=== PATIENT | female | born 1995 | race Caucasian/White ===

== ENCOUNTER 2018-04-25 16:43 | Emergency (ER) | payer OTHER ==
[2018-04-25 16:57] VITALS: TEMP 98.3
--- NOTE | 2018-04-25 18:29 | ED ---
General Adult HPI - General Chief complaint: Urogenital Stated complaint: ENT, Urinary Time Seen by Provider: 04/25/18 17:02 Source: patient Mode of arrival: ambulatory Limitations: no limitations - History of Present Illness Initial comments: 22-year-old female presenting today for multiple complaints. Patient states that while had brought her to the emergency department was congestion, sinus pressure, "and sinus headache". Patient states she has had multiple sinus infections in the past and this feels identical, she denies this being the worst headache of her life or sudden onset. Patient denies any visual changes, nausea, vomiting, diplopia or dizziness. Patient denies any history of head trauma. Patient states the pain in her face increases with downward head movement. She states she has pressure in her ears bilaterally, stating they often pop. Patient also mentioned that she has had for the past 1-2 weeks bilateral "ovary" pain. Patient states that pain at its worst is 10 out of 10 and comes and goes. Patient denies any upper abdominal pain, vaginal bleeding. Patient states she has history of ovarian cysts and the characterisitic is similar however the pain usually doesnt last that long, patient is on DEPO and states she has not had a period since the start of DEPO about 4 years ago. Pt states she was recently evaluated at a [facility] clinic where evaluation and STD testing was normal. Patient also stated today that she has dysuria, urgency and frequency, she states he has frequent urinary tract infections and this feels identical to when she has had them in the past. Patient denies hematuria flank or back pain denies fever or chills or night sweats. Remaining ROS (-), Patient denies any recent cough, sore throat, shortness of breath, chest pain, back pain, nausea or vomiting, numbness or tingling, constipation or diarrhea, or any other complaints. Patient appears well, no clinical signs of distress, no protecting posturing. Patient is smiling and appearing well. - Related Data Home Medications Medication Instructions Recorded Confirmed ALPRAZolam [Xanax] 0.5 mg PO BID PRN 12/16/17 04/25/18 Albuterol Inhaler [Ventolin Hfa 1 - 2 puff INHALATION RT-Q6H PRN 12/16/17 04/25/18 Inhaler] Cetirizine HCl [Zyrtec] 10 mg PO DAILY 12/16/17 04/25/18 FLUoxetine HCL [PROzac] 20 mg PO BID 12/16/17 04/25/18 Fluticasone Propionate [Flovent 2 puff INHALATION RT-BID 12/16/17 04/25/18 Hfa 110mcg] Previous Rx's Medication Instructions Recorded Sulfamethox-Tmp 800-160Mg [Bactrim 1 tab PO Q12HR 3 Days #6 tab 04/25/18 DS 800-160 mg] Allergies Allergy/AdvReac Type Severity Reaction Status Date / Time amoxicillin Allergy Anaphylaxis Verified 04/25/18 18:56 Penicillins Allergy Anaphylaxis Verified 04/25/18 18:56 Review of Systems ROS Statement: Those systems with pertinent positive or pertinent negative responses have been documented in the HPI. ROS Other: All systems not noted in ROS Statement are negative. Past Medical History Past Medical History: Asthma History of Any Multi-Drug Resistant Organisms: None Reported Past Surgical History: No Surgical Hx Reported Past Psychological History: Anxiety, Depression Smoking Status: Never smoker Past Alcohol Use History: None Reported Past Drug Use History: None Reported General Exam - General Exam Comments Initial Comments: General: The patient is awake and alert, in no distress, and does not appear acutely ill. Eye: +3 mm pupils are equal, round and reactive to light, extra-ocular movements are intact. No nystagmus. There is normal conjunctiva bilaterally. No signs of icterus. No photophobia Ears, nose, mouth and throat: There are moist mucous membranes and no oral lesions. Oropharynx was not erythematous there is no tonsillar enlargement exudates or lesions. Uvula midline. Tympanic membranes are not erythematous or is no effusions bulging or retraction. No tenderness to palpation of the mastoid. No anterior cervical lymphadenopathy. Rhinorrhea, clear and bilateral nares. No tripoding, no drooling. Neck: The neck is supple, there is no tenderness or JVD. No nuchal rigidity negative Brudzinski and Kernig Cardiovascular: There is a regular rate and rhythm. No murmur, rub or gallop is appreciated. Respiratory: Lungs are clear to auscultation, respirations are non-labored, breath sounds are equal. No wheezes, stridor, rales, or rhonchi. No retractions or abdominal breathing. Gastrointestinal: No noted diaphoresis, jaundice, pallor, protecting postures or squirming. Symmetrical pigmentation of abdomen without signs of inflammation, [scars], or striae. Umbilicus mildline, inverted without swelling. No dilated veins. Abdomen contour [ ], no noted abdominal distention. No visible masses. No peristalsis, aortic pulsations, or ventral hernia. Bowel sounds audible in all 4 quadrants, unremarkable. No tenderness to light or deep palpation of upper quadrants of abdomen, bilateral lower pelvic pain to deep palpation, appears mild- no rigidity, guarding, grimacing a protective postures. Liver edge, not palpable. Spleen edge, right and left kidney not palpable. Superior bladder margin non- tender. Special Testing: Negative [place], Rovsing, McBurney, Catarina, cutaneous hyperesthesia. Iliopsoas and obturator tests negative bilaterally. Negative Heel Jar test/james sign. No CVA tenderness. [Digital rectal exam deferred.] Negative paul turners or cullens sign Musculoskeletal: Normal ROM, no tenderness. Strength 5/5. Sensation intact. Radial pulses equal bilaterally 2+. Neurological: A&O x 3. CN II-XII intact, There are no obvious motor or sensory deficits. Coordination appears grossly intact. Speech appears normal, no muffling. Skin: Skin is warm and dry and no rashes or lesions are noted. No extremity edema Psychiatric: Cooperative Limitations: no limitations Course Vital Signs 04/25/18 16:54 Temperature 98.3 F Pulse Rate 92 Respiratory 18 Rate Blood Pressure 108/68 O2 Sat by Pulse 96 Oximetry Medical Decision Making - Medical Decision Making UA revealed findings concerning for UTI, will tx with bactrim. Pt has sinus pain to palpation, mild of the frontal sinuses. Patient afebrile appearing well and nontoxic. Patient states she does have chronic ALLERGIES and this seems to happen when the changes in weather. Patient takes ALLERGY medications at home as well as a nasal spray. I recommended continuing these modalities for treatment of sinus pressure. No overt signs of infection at this time. US (-) for torsion, or acute process. She had what appeared to be a benign abdominal exam without rigidity or guarding. Pt did not appear in acute distress or pain throughout visit. Pt states symptoms ongoing for weeks. Patient is to f/u with womens clinic and primary care provider. Return parameters discussed with patient who verbalized understanding. Patient denied questions. Patient is agreeable plan at discharge. Case discussed with Dr. Vincent prior to patients discharge. - Lab Data Lab Results 04/25/18 04/25/18 Range/Units 18:17 18:17 Urine Color Yellow Urine Appearance Clear (Clear) Urine pH 5.5 (5.0-8.0) Ur Specific [place] 1.017 (1.001-1.035) Urine Protein Negative (Negative) Urine Glucose (UA) Negative (Negative) Urine Ketones Negative (Negative) Urine Blood Trace H (Negative) Urine Nitrite Negative (Negative) Urine Bilirubin Negative (Negative) Urine Urobilinogen <2.0 (<2.0) mg/dL Ur Leukocyte Esterase Trace H (Negative) Urine RBC 2 (0-5) /hpf Urine WBC 6 H (0-5) /hpf Ur Squamous Epith Cells 7 H (0-4) /hpf Amorphous Sediment Rare H (None) /hpf Urine Bacteria Occasional H (None) /hpf Urine Mucus Rare H (None) /hpf Urine HCG, Qual Not Detected (Not Detectd) Disposition Clinical Impression: Sinusitis, UTI (urinary tract infection), Pelvic pain Disposition: HOME SELF-CARE Condition: Good Instructions (If sedation given, give patient instructions): Urinary Tract Infection in Women (ED) Additional Instructions: Please use medication as discussed. Please follow-up with family doctor in the next 2 days. Please [facility] with [facility] as discussed. Please return to emergency room if the symptoms increase or worsen or for any other concerns. Prescriptions: Sulfamethox-Tmp 800-160Mg [Bactrim DS 800-160 mg] 1 tab PO Q12HR 3 Days #6 tab Is patient prescribed a controlled substance at d/c from ED?: No Referrals: None,Stated [Primary Care Provider] - 1-2 days [facility] - 1-2 days Time of Disposition: 18:55
[2018-04-25 18:39] LABS: Amorphous Sediment,Urine Rare /hpf; Appearance,Urine Clear (Clear); Bacteria,Urine Occasional /hpf; Bilirubin,Urine Negative (Negative); Blood,Urine Trace (Negative); Color,Urine Yellow; Glucose,Urine (UA) Negative (Negative); Ketones,Urine Negative (Negative); Leukocyte Esterase,Urine Trace (Negative); Mucus,Urine Rare /hpf; Nitrite,Urine Negative (Negative); PH, Urine 5.5 (5.0-8.0); Protein,Urine Negative (Negative); RBC,Urine 2 /hpf (0-5); Specific Gravity,Urine 1.017 (1.001-1.035); Squamous Epithelial Cell,Urine 7 /hpf (0-4); Urobilinogen,Urine <2.0 mg/dL (<2.0)
--- NOTE | 2018-04-25 18:48 | US ---
EXAMINATION TYPE: US transvaginal DATE OF EXAM: 04/25/2018 COMPARISON: NONE CLINICAL HISTORY: Pain. Pelvic cramping x couple weeks, LMP 4 years ago, patient on depo shot, gravid a 0 TECHNIQUE: Transvaginal ER exam. Date of LMP: 4 years ago EXAM MEASUREMENTS: Uterus: 5.4 x 2.4 x 3.2 cm Endometrial Stripe: 0.4 cm Right Ovary: 2.9 x 2.3 x 1.8 cm Left Ovary: 2.8 x 1.8 x 1.7 cm 1. Uterus: anteverted 2. Endometrium: wnl 3. Right Ovary: multiple follicles 4. Left Ovary: wnl Spectral, color and waveform doppler imaging shows good arterial and venous flow within the ovaries ; there is no evidence for ovarian torsion. 5. Bilateral Adnexa: wnl 6. Posterior cul-de-sac: wnl IMPRESSION: Unremarkable abdominal ultrasound. Findings are unchanged from the prior of 12/16/2017. No current evidence of ovarian torsion at the time of examination.
[2018-04-25 19:36] VITALS: BP 125/66; PULSE 73; RESP 16
== END 2018-04-25 19:35 | disposition home or self-care (01) ==
LOC: EC 16:43
DX: J32.9 Chronic sinusitis, unspecified (principal); N39.0 Urinary tract infection, site not specified; J45.909 Unspecified asthma, uncomplicated; F41.9 Anxiety disorder, unspecified; F32.9 Major depressive disorder, single episode, unspecified; Z87.42 Personal history of other diseases of the female genital tract; Z79.51 Long term (current) use of inhaled steroids; Z79.899 Other long term (current) drug therapy; Z88.0 Allergy status to penicillin
CPT/HCPCS: 76830; 81001; 81025; 87086; 93975; 99284

== ENCOUNTER 2018-05-10 12:00 | Emergency (ER) | payer OTHER ==
[2018-05-10 12:08] VITALS: RESP 18
[2018-05-10] MEDS ORDERED: SODIUM CHLORIDE 0.9% 500 ML 500 ML IV STA (12:23)
[2018-05-10 13:09] LABS: Basophils % (A) 0 %; Eosinophils # (A) 0.3 k/uL (0-0.7); Eosinophils % (A) 4 %; HCT 41.6 % (34.0-46.0); HGB 14.3 gm/dL (11.4-16.0); Lymphocytes # (A) 2.2 k/uL (1.0-4.8); Lymphocytes % (A) 36 %; MCH 29.4 pg (25.0-35.0); MCHC 34.3 g/dL (31.0-37.0); MCV 85.6 fL (80.0-100.0); Mean Platelet Volume 7.5; Monocytes # (A) 0.3 k/uL (0-1.0); Monocytes % (A) 6 %; Neutrophils # (A) 3.2 k/uL (1.3-7.7); Neutrophils % (A) 52 %; Platelet Count 327 k/uL (150-450); RBC 4.86 m/uL (3.80-5.40); RDW 12.6 % (11.5-15.5); WBC 6.2 k/uL (3.8-10.6)
[2018-05-10 13:10] LABS: Appearance,Urine Clear (Clear); Bilirubin,Urine Negative (Negative); Blood,Urine Negative (Negative); Color,Urine Light Yellow; Glucose,Urine (UA) Negative (Negative); Ketones,Urine Negative (Negative); Leukocyte Esterase,Urine Negative (Negative); Nitrite,Urine Negative (Negative); Protein,Urine Negative (Negative); Specific Gravity,Urine 1.007 (1.001-1.035); Urobilinogen,Urine <2.0 mg/dL (<2.0)
[2018-05-10 13:15] LABS: ALT 22 U/L (9-52); AST 21 U/L (14-36); Alkaline Phosphatase 88 U/L (38-126); Amylase 46 U/L (30-110); Anion Gap 8 mmol/L; Blood Urea Nitrogen 9 mg/dL (7-17); Calcium 9.8 mg/dL (8.4-10.2); Carbon Dioxide 24 mmol/L (22-30); Chloride 108 mmol/L (98-107); Glucose 89 mg/dL (74-99); Lipase 72 U/L (23-300); Potassium 4.1 mmol/L (3.5-5.1); Sodium 140 mmol/L (137-145); Total Bilirubin 0.5 mg/dL (0.2-1.3); Total Protein 7.2 g/dL (6.3-8.2)
--- NOTE | 2018-05-10 13:24 | US ---
EXAMINATION TYPE: US venous doppler duplex LE LT DATE OF EXAM: 05/10/2018 1:16 PM COMPARISON: NONE CLINICAL HISTORY: Pain. Left leg cramping x couple weeks SIDE PERFORMED: Left TECHNIQUE: The lower extremity deep venous system is examined utilizing real time linear array sonog ras with graded compression, doppler sonography and color-flow sonography. VESSELS IMAGED: External Iliac Vein (EIV) Common Femoral Vein Deep Femoral Vein Greater Saphenous Vein * Femoral Vein Popliteal Vein Small Saphenous Vein * Proximal Calf Veins (* superficial vessels) Left Leg: Appears negative for DVT IMPRESSION: 1. No diagnostic evidence of DVT as visualized.
--- NOTE | 2018-05-10 13:50 | ED ---
Abdominal Pain HPI - General Chief Complaint: Abdominal Pain Stated Complaint: abd/leg pain Time Seen by Provider: 05/10/18 12:10 Source: patient Mode of arrival: ambulatory Limitations: no limitations - History of Present Illness Initial Comments: 22-year-old female presenting for multiple complaints. Patient states she presented to an urgent care facility prior to arrival for evaluation of lower pelvic pain 6 weeks and left lower extremity swelling and cramping x2 weeks. Patient states she is experiencing a cramping for longer than 2 weeks she states she has for years experiencing the cramping. Patient noticed the past 2 weeks her left leg appeared mildly swollen. So the right. She states she did have a previous ankle fracture greater than 5 years ago and has had some swelling of the left leg on and off since the incident. Patient denies history of blood clot, recent travel, history of cancer, she denies chest pain, dysphagia, dyspep seferino exertion, hemoptysis. Patient states she has not followed up with RENAL MEDICINE PHYSICIAN or primary care as discussed prior to discharge on visit 04/25/2018. Patient states she is in the process of following up patient denies vaginal discharge, pain with sex. Patient admits to some dysuria denies urgency frequency or hematuria. Patient has had 2 negative pelvic ultrasounds in the past 6 months. Patient denies back pain. Patient denies radiation of the dental pain she states it feels as though it is lower pelvic cramping, she denies it being constant she states is sharp at times. Patient denies current pain. Remaining review of systems negative, patient denies any recent fever, chills, shortness o f breath, chest pain, nausea or vomiting, numbness or tingling, constipation or diarrhea, headaches or visual changes, or any other complaints. Upon arrival patient appears comfortable in no acute distress. Vital signs within acceptable limits. - Related Data Home Medications Medication Instructions Recorded Confirmed ALPRAZolam [Xanax] 0.5 mg PO BID PRN 12/16/17 05/10/18 Cetirizine HCl [Zyrtec] 10 mg PO DAILY 12/16/17 05/10/18 FLUoxetine HCL [PROzac] 20 mg PO BID 12/16/17 05/10/18 Allergies Allergy/AdvReac Type Severity Reaction Status Date / Time amoxicillin Allergy Anaphylaxis Verified 05/10/18 12:37 Penicillins Allergy Anaphylaxis Verified 05/10/18 12:37 Review of Systems ROS Statement: Those systems with pertinent positive or pertinent negative responses have been documented in the HPI. ROS Other: All systems not noted in ROS Statement are negative. Past Medical History Past Medical History: Asthma History of Any Multi-Drug Resistant Organisms: None Reported Past Surgical History: No Surgical Hx Reported Past Psychological History: Anxiety, Depression Smoking Status: Never smoker Past Alcohol Use History: None Reported Past Drug Use History: None Reported General Exam - General Exam Comments Initial Comments: General: The patient is awake and alert, in no distress, and does not appear acutely ill. Eye: Pupils are equal, round and reactive to light, extra-ocular movements are intact. No nystagmus. There is normal conjunctiva bilaterally. No signs of icterus. Ears, nose, mouth and throat: There are moist mucous membranes and no oral lesions. Neck: The neck is supple, there is no tenderness or JVD. Cardiovascular: There is a regular rate and rhythm. No murmur, rub or gallop is appreciated. Respiratory: Lungs are clear to auscultation, respirations are non-labored, breath sounds are equal. No wheezes, stridor, rales, or rhonchi. Gastrointestinal: Soft, non-distended, non-tender abdomen without masses or organomegaly noted. There is no rebound or guarding present. No CVA tenderness. Bowel sounds are unremarkable. Pelvic exam revealed white thin discharge, no odor. No adnexal or cervical motion tenderness on bimanual. [place], well rugated, vaginal mucosa. No external lesions. No external irritation or abscesses. Musculoskeletal: Normal ROM, no tenderness. Strength 5/5. Sensation intact. Radial pulses equal bilaterally 2+. Neurological: A&O x 3. CN II-XII intact, There are no obvious motor or sensory deficits. Coordination appears grossly intact. Speech is normal. Skin: Skin is warm and dry and no rashes or lesions are noted. Psychiatric: Cooperative, appropriate mood & affect, normal judgment. Limitations: no limitations Course Vital Signs 05/10/18 05/10/18 12:06 14:47 Temperature 98.3 F 98.1 F Pulse Rate 74 89 Respiratory 18 18 Rate Blood Pressure 110/70 118/78 O2 Sat by Pulse 98 99 Oximetry Medical Decision Making - Medical Decision Making 22-year-old female presenting for abdominal pain 6 weeks, she states it feels as though is that her ovaries. Patient states his bilateral sharp states is not constant comes and goes. Patient denies current pain. Patient states she presented to an urgent care facility because she was having difficulty following up outpatient. Patient has benign abdominal exam. She appears comfortable. Pelvic exam revealed small amount of discharge. Treating prophylactically was discussed with patient including her penicillin ALLERGY with anaphylaxis. This time patient would like to go forward with azithromycin and Flagyl however will avoid ceftriaxone treatment pending STI testing. Patient has no cervical motion or adnexal tenderness. No findings consistent with pelvic inflammatory disease at this time. Patient denies constitutional symptoms, patient afebrile upon arrival. Pt states she has not had period in 3-4 years, has depo shot. Pt sexually active with one serious partner. . At this time given patient's clinical presentation, abdominal exam, pelvic exam and I feel acute intrapelvic process is occurring at this time. Patient had multiple negative pelvic ultrasounds the last 6 months. Patient will be discharged with follow-up at [facility] where she can be referred to an RENAL MEDICINE PHYSICIAN. Patient verbalized understanding of the importance of follow-up. Return parameters were discussed at length with patient who verbalizes understanding. Patient discharged. Will after discussing case with Dr. Vincent - Lab Data Result diagrams: 05/10/18 12:45 05/10/18 12:45 Lab Results 05/10/18 05/10/18 05/10/18 Range/Units 12:45 12:45 12:45 WBC 6.2 (3.8-10.6) k/uL RBC 4.86 (3.80-5.40) m/uL Hgb 14.3 (11.4-16.0) gm/dL Hct 41.6 (34.0-46.0) % MCV 85.6 (80.0-100.0) fL MCH 29.4 (25.0-35.0) pg MCHC 34.3 (31.0-37.0) g/dL RDW 12.6 (11.5-15.5) % Plt Count 327 (150-450) k/uL Neutrophils % 52 % Lymphocytes % 36 % Monocytes % 6 % Eosinophils % 4 % Basophils % 0 % Neutrophils # 3.2 (1.3-7.7) k/uL Lymphocytes # 2.2 (1.0-4.8) k/uL Monocytes # 0.3 (0-1.0) k/uL Eosinophils # 0.3 (0-0.7) k/uL Basophils # 0.0 (0-0.2) k/uL Sodium 140 (137-145) mmol/L Potassium 4.1 (3.5-5.1) mmol/L Chloride 108 H (98-107) mmol/L Carbon Dioxide 24 (22-30) mmol/L Anion Gap 8 mmol/L BUN 9 (7-17) mg/dL Creatinine 0.54 (0.52-1.04) mg/dL Est GFR (CKD-EPI)AfAm >90 (>60 ml/min/1.73 sqM) Est GFR (CKD-EPI)NonAf >90 (>60 ml/min/1.73 sqM) Glucose 89 (74-99) mg/dL Calcium 9.8 (8.4-10.2) mg/dL Total Bilirubin 0.5 (0.2-1.3) mg/dL AST 21 (14-36) U/L ALT 22 (9-52) U/L Alkaline Phosphatase 88 (38-126) U/L Total Protein 7.2 (6.3-8.2) g/dL Albumin 4.0 (3.5-5.0) g/dL Amylase 46 (30-110) U/L Lipase 72 (23-300) U/L Urine Color Light Yellow Urine Appearance Clear (Clear) Urine pH 7.0 (5.0-8.0) Ur Specific [place] 1.007 (1.001-1.035) Urine Protein Negative (Negative) Urine Glucose (UA) Negative (Negative) Urine Ketones Negative (Negative) Urine Blood Negative (Negative) Urine Nitrite Negative (Negative) Urine Bilirubin Negative (Negative) Urine Urobilinogen <2.0 (<2.0) mg/dL Ur Leukocyte Esterase Negative (Negative) Urine HCG, Qual (Not Detectd) Trichomonas Ag (Rapid) (Negative) 05/10/18 05/10/18 Range/Units 12:45 14:00 WBC (3.8-10.6) k/uL RBC (3.80-5.40) m/uL Hgb (11.4-16.0) gm/dL Hct (34.0-46.0) % MCV (80.0-100.0) fL MCH (25.0-35.0) pg MCHC (31.0-37.0) g/dL RDW (11.5-15.5) % Plt Count (150-450) k/uL Neutrophils % % Lymphocytes % % Monocytes % % Eosinophils % % Basophils % % Neutrophils # (1.3-7.7) k/uL Lymphocytes # (1.0-4.8) k/uL Monocytes # (0-1.0) k/uL Eosinophils # (0-0.7) k/uL Basophils # (0-0.2) k/uL Sodium (137-145) mmol/L Potassium (3.5-5.1) mmol/L Chloride (98-107) mmol/L Carbon Dioxide (22-30) mmol/L Anion Gap mmol/L BUN (7-17) mg/dL Creatinine (0.52-1.04) mg/dL Est GFR (CKD-EPI)AfAm (>60 ml/min/1.73 sqM) Est GFR (CKD-EPI)NonAf (>60 ml/min/1.73 sqM) Glucose (74-99) mg/dL Calcium (8.4-10.2) mg/dL Total Bilirubin (0.2-1.3) mg/dL AST (14-36) U/L ALT (9-52) U/L Alkaline Phosphatase (38-126) U/L Total Protein (6.3-8.2) g/dL Albumin (3.5-5.0) g/dL Amylase (30-110) U/L Lipase (23-300) U/L Urine Color Urine Appearance (Clear) Urine pH (5.0-8.0) Ur Specific [place] (1.001-1.035) Urine Protein (Negative) Urine Glucose (UA) (Negative) Urine Ketones (Negative) Urine Blood (Negative) Urine Nitrite (Negative) Urine Bilirubin (Negative) Urine Urobilinogen (<2.0) mg/dL Ur Leukocyte Esterase (Negative) Urine HCG, Qual Not Detected (Not Detectd) Trichomonas Ag (Rapid) Negative (Negative) Disposition Clinical Impression: Leg swelling, Pelvic pain Disposition: HOME SELF-CARE Condition: Good Instructions (If sedation given, give patient instructions): Pelvic Pain in Women (ED) Additional Instructions: Please use medication as discussed. Please follow-up with family doctor in the next 2 days. Please return to emergency room if the symptoms increase or worsen or for any other concerns. Is patient prescribed a controlled substance at d/c from ED?: No Referrals: None,Stated [Primary Care Provider] - 1-2 days [facility] [[facility] - 1-2 days Time of Disposition: 13:49
[2018-05-10] MEDS ORDERED: AZITHROMYCIN 500 MG TAB PO STA (14:22)
[2018-05-10] MEDS ORDERED: metroNIDAZOLE 500 MG TAB PO STA (14:23)
[2018-05-10 14:51] VITALS: BP 118/78; PULSE 89; TEMP 98.1
[2018-05-11 14:08] LABS: C. trachomatis,PCR Negative (Neg,Equiv); Chlamydia trachomatis Source Vagina
[2018-05-11 14:21] LABS: N. gonorrhoeae,PCR Negative (Neg,Equiv); Neisseria Source Vagina
== END 2018-05-10 14:47 | disposition home or self-care (01) ==
LOC: EC 12:00
DX: R10.2 Pelvic and perineal pain (principal); M79.89 Other specified soft tissue disorders; M79.605 Pain in left leg; R30.0 Dysuria; N89.8 Other specified noninflammatory disorders of vagina; F41.9 Anxiety disorder, unspecified; F32.9 Major depressive disorder, single episode, unspecified; Z87.81 Personal history of (healed) traumatic fracture; Z79.899 Other long term (current) drug therapy; Z88.0 Allergy status to penicillin
CPT/HCPCS: 36415; 80053; 81003; 81025; 82150; 83690; 85025; 87491; 87591; 87808; 96360; 96361; 99284

== ENCOUNTER → 2019-01-22 | Outpatient (CLI) | payer OTHER ==
--- NOTE | 2019-01-22 08:18 | CT ---
EXAMINATION TYPE: CT brain wo con DATE OF EXAM: 01/22/2019 COMPARISON: None HISTORY: Migraines, visual changes CT DLP: 997.[address] of the brain was performed. The ventricles, basal cisterns and sulci overlying the cerebral convexities demonstrate a normal appe arance. There is no evidence for intracranial hemorrhage or sulcal effacement. No mass effects are seen. Osseous calvarium is intact. If symptoms persist consider MRI as clinically warranted. IMPRESSION: 1. No acute intracranial process is seen at this time.
== END | disposition home or self-care (01) ==
LOC: RADCTMAIN 07:42
PROVIDERS: ATTEND Family Medicine
DX: G43.909 Migraine, unspecified, not intractable, without status migrainosus (principal); H53.9 Unspecified visual disturbance; Z88.0 Allergy status to penicillin; Z88.1 Allergy status to other antibiotic agents
CPT/HCPCS: 70450

== ENCOUNTER → 2019-03-23 | Outpatient (CLI) | payer OTHER ==
--- NOTE | 2019-03-23 15:58 | US ---
EXAMINATION TYPE: US pelvis complete transvag DATE OF EXAM: 03/23/2019 COMPARISON: US CLINICAL HISTORY: R10.2 Female pelvic pain N83.20 Ovarian Cyst known. TECHNIQUE: Transvaginal (TV) and Transabdominal (TA) . Transabdominal sonographic images of the pel vis were acquired. Transvaginal sonographic images were medically necessary to better assess the fol lowing anatomy: ovaries Date of LMP: pt on depo and does not have cycles. EXAM MEASUREMENTS: Uterus: 5.3 x 3.0 x 5.1 cm Endometrial Stripe: 0.4 cm Right Ovary: 3.0 x 2.6 x 2.3 cm Left Ovary: 2.8 x 2.0 x 2.0 cm 1. Uterus: Anteverted wnl 2. Endometrium: measures 0.4 cm, patient does not have cycles due to being on depo shot. 3. Right Ovary: Physiologic follicular change 4. Left Ovary: Physiologic follicular change Spectral, color and waveform doppler imaging shows good arterial and venous flow within the ovaries ; there is no evidence for ovarian torsion. 5. Bilateral Adnexa: wnl 6. Posterior cul-de-sac: no free fluid IMPRESSION: Physiologic follicular change of the ovaries. Endometrial thickness is within normal limi ts.
== END | disposition home or self-care (01) ==
LOC: RADUSWWP 15:19
PROVIDERS: ATTEND Family Medicine
DX: N83.209 Unspecified ovarian cyst, unspecified side (principal); R10.2 Pelvic and perineal pain; Z88.0 Allergy status to penicillin
CPT/HCPCS: 76830; 76856